=== PATIENT | male | born 1965 | race Caucasian/White ===

== ENCOUNTER 2018-09-30 08:46 | Inpatient (IN) | payer BC ==
--- NOTE | 2018-09-30 09:08 | EDM.PDOC ---
ED HPI GENERAL MEDICAL PROBLEM - General Stated Complaint: SICK Time Seen by Provider: 09/30/18 09:00 Source of Information: Reports: Patient History Limitations: Reports: No Limitations - History of Present Illness INITIAL COMMENTS - FREE TEXT/NARRATIVE: This 53 yo male patient reports to the ED with a 1 week history of cough, increased shortness of breath, fever and generalized weakness. The patient reports up to about 1 week ago, he was having cold like symptoms with clear sputum, but now he has been having yellowish expectorated sputum. The patient reports he has previously had pneumonia. The patient reports he continues to smoke cigarettes. The patient reports his fever was up to 103, but today it has been 99 with Tylenol and ibuprofen. The patient denies any chest pain at this time, but continues to have shortness of breath. Onset: Gradual Duration: Week(s):, Constant, Getting Worse Location: Reports: Chest Quality: Reports: Ache, Dull Severity: Moderate Improves with: Reports: Medication (Tylenol and ibuprofen) Worsens with: Reports: Other (activity) Context: Reports: Other Associated Symptoms: Reports: cough w sputum, Fever/Chills, Shortness of Breath , Weakness Treatments HAT BLOCK BENCH HAND: Reports: Acetaminophen, NSAIDS - Related Data Allergies Allergy/AdvReac Type Severity Reaction Status Date / Time Penicillins Allergy Cannot Verified 09/30/18 08:53 Remember Home Meds: Home Meds . [No Known Home Meds] 09/30/18 [History] ED ROS GENERAL - Review of Systems Review Of Systems: ROS reveals no pertinent complaints other than HPI. ED EXAM, GENERAL - Physical Exam Exam: See Below Exam Limited By: No Limitations General Appearance: Alert, WD/WN, Moderate Distress, Obese Eye Exam: Bilateral Eye: EOMI, Normal Inspection, PERRL Ears: Normal External Exam, Normal Canal, Hearing Grossly Normal, Normal TMs Nose: Normal Inspection, Normal Mucosa, No Blood Throat/Mouth: Normal Inspection, Normal Lips, Normal Teeth, Normal Gums, Normal Oropharynx, Normal Voice, No Airway Compromise Head: Atraumatic, Normocephalic Neck: Normal Inspection, Supple, Non-Tender, Full Range of Motion Respiratory/Chest: Decreased Breath Sounds, Rhonchi (throughout) Cardiovascular: Normal Peripheral Pulses, Regular Rate, Rhythm, No Edema, No Gallop, No JVD, No Murmur, No Rub GI/Abdominal: Normal Bowel Sounds, Soft, Non-Tender, No Organomegaly, No Distention, No Abnormal Bruit, No Mass (Male) Exam: Deferred Rectal (Males) Exam: Deferred Back Exam: Normal Inspection, Full Range of Motion, NT Extremities: Normal Inspection, Normal Range of Motion, Non-Tender, Normal Capillary Refill, No Pedal Edema Neurological: Alert, Oriented, CN II-XII Intact, Normal Cognition, Normal Gait, Normal Reflexes, No Motor/Sensory Deficits Psychiatric: Normal Affect, Normal Mood Skin Exam: Warm, Dry, Intact, Normal Color, No Rash Lymphatic: No Adenopathy Course - Vital Signs Last Recorded V/S: Last Vital Signs Temp 36.1 C 09/30/18 09:02 Pulse 110 H 09/30/18 09:02 Resp 28 H 09/30/18 09:02 BP 189/117 H 09/30/18 09:02 Pulse Ox 93 L 09/30/18 09:37 - Orders/Labs/Meds Orders: Active Orders 24 hr Category Date Time Status EKG Documentation Completion [RC] URGENT Care 09/30/18 08:52 Active RT Aerosol Therapy [RC] ASDIRECTED Care 09/30/18 09:37 Active Chest 2V [CR] Urgent Exams 09/30/18 08:52 Taken ABG [BLOOD GAS ARTERIAL] [BG] Stat Lab 09/30/18 10:26 Ordered CBC WITH AUTO DIFF [HEME] Urgent Lab 09/30/18 09:11 Results CULTURE BLOOD [BC] Stat Lab 09/30/18 09:11 Received CULTURE BLOOD [BC] Stat Lab 09/30/18 10:07 Received CULTURE SPUTUM + SMEAR [RM] Stat Lab 09/30/18 09:02 Received MANUAL DIFFERENTIAL QA/NC [HEME] Urgent Lab 09/30/18 09:11 Results Meropenem [Merrem] 1 gm Med 09/30/18 10:25 Ordered Sodium Chloride 0.9% [Normal Saline] 100 ml IV ONETIME Vancomycin 2 gm Med 09/30/18 10:15 Active Sodium Chloride 0.9% [Normal Saline] 500 ml IV ONETIME Medication Orders Vancomycin HCl 2 gm/ Sodium (Chloride) 500 mls @ 250 mls/hr IV ONETIME ONE Stop: 09/30/18 12:14 Meropenem 1 gm/ Sodium (Chloride) 100 mls @ 200 mls/hr IV ONETIME ONE Stop: 09/30/18 10:54 Labs: Laboratory Tests 09/30/18 09/30/18 09/30/18 Range/Units 09:11 09:11 09:11 WBC 19.0 H (5.0-10.0) 10^3/uL RBC 5.18 (4.6-6.2) 10^6/uL Hgb 16.2 (14.0-18.0) g/dL Hct 50.7 (40.0-54.0) % MCV 97.9 (80-100) fL MCH 31.3 (27.0-34.0) pg MCHC 32.0 L (33.0-35.0) g/dL Plt Count 214 (150-450) 10^3/uL Neut % (Auto) 73.7 (42.2-75.2) % Lymph % (Auto) 9.0 L (20.5-50.1) % [place] % (Auto) 17.1 H (2-8) % Eos % (Auto) 0.1 L (1.0-3.0) % Baso % (Auto) 0.1 (0.0-1.0) % Add Manual Diff Yes Sodium 136 (135-145) mmol/L Potassium 3.9 (3.6-5.0) mmol/L Chloride 98 L (101-111) mmol/L Carbon Dioxide 26.0 (21.0-31.0) mmol/L Anion Gap 15.9 BUN 12 (7-18) mg/dL Creatinine 0.7 (0.6-1.3) mg/dL Est Cr Clr Drug Dosing 123.12 mL/min Estimated GFR (MDRD) > 60 BUN/Creatinine Ratio 17.14 Glucose 126 H (74-105) mg/dL Lactic Acid 1.2 (0.5-2.2) mmol/L Calcium 8.5 (8.4-10.2) mg/dl Total Bilirubin 0.7 (0.2-1.0) mg/dL AST 30 (10-42) IU/L ALT 34 (10-60) IU/L Alkaline Phosphatase 73 (42-121) IU/L Troponin I < 0.02 (0.00-0.02) ng/ml Total Protein 7.7 (6.7-8.2) g/dl Albumin 3.5 (3.2-5.5) g/dl Globulin 4.2 Albumin/Globulin Ratio 0.83 Meds: Medications Generic Name Dose Route Start Last Admin Trade Name Freq PRN Reason Stop Dose Admin Vancomycin HCl 2 gm/ Sodium 500 mls @ 250 mls/hr 09/30/18 10:15 Chloride IV 09/30/18 12:14 ONETIME ONE Meropenem 1 gm/ Sodium 100 mls @ 200 mls/hr 09/30/18 10:25 Chloride IV 09/30/18 10:54 ONETIME ONE Discontinued Medications Generic Name Dose Route Start Last Admin Trade Name Freq PRN Reason Stop Dose Admin Albuterol/Ipratropium 3 ml 09/30/18 09:37 09/30/18 09:43 Duoneb 3.0-0.5 Mg/3 Ml NEB 09/30/18 09:38 3 ml ONETIME ONE Administration Departure - Departure Time of Disposition: 10:26 Disposition: Admitted As Inpatient 64 Condition: Serious Clinical Impression: Pneumonia Qualifiers: Pneumonia type: due to unspecified organism Laterality: unspecified laterality Lung location: unspecified part of lung Qualified Code(s): J18.9 - Pneumonia, unspecified organism - Discharge Information *PRESCRIPTION DRUG MONITORING PROGRAM REVIEWED*: Not Applicable *COPY OF PRESCRIPTION DRUG MONITORING REPORT IN PATIENT RUBIN: Not Applicable Care Plan Goals: Discussed the patient's history, examination, lab, treatments and x-ray results with Dr. Barnett. Dr. Barnett accepted the patient for continued evaluation and management as an inpatient at [facility] in [place]. - My Orders Last 24 Hours: My Active Orders 09/30/18 08:52 EKG Documentation Completion [RC] URGENT Chest 2V [CR] Urgent 09/30/18 09:02 CULTURE SPUTUM + SMEAR [RM] Stat 09/30/18 09:11 CBC WITH AUTO DIFF [HEME] Urgent CULTURE BLOOD [BC] Stat MANUAL DIFFERENTIAL QA/NC [HEME] Urgent 09/30/18 09:37 RT Aerosol Therapy [RC] ASDIRECTED 09/30/18 10:07 CULTURE BLOOD [BC] Stat 09/30/18 10:15 Vancomycin 2 gm Sodium Chloride 0.9% [Normal Saline] 500 ml IV ONETIME 09/30/18 10:25 Meropenem [Merrem] 1 gm Sodium Chloride 0.9% [Normal Saline] 100 ml IV ONETIME 09/30/18 10:26 ABG [BLOOD GAS ARTERIAL] [BG] Stat - Assessment/Plan Last 24 Hours: My Active Orders 09/30/18 08:52 EKG Documentation Completion [RC] URGENT Chest 2V [CR] Urgent 09/30/18 09:02 CULTURE SPUTUM + SMEAR [RM] Stat 09/30/18 09:11 CBC WITH AUTO DIFF [HEME] Urgent CULTURE BLOOD [BC] Stat MANUAL DIFFERENTIAL QA/NC [HEME] Urgent 09/30/18 09:37 RT Aerosol Therapy [RC] ASDIRECTED 09/30/18 10:07 CULTURE BLOOD [BC] Stat 09/30/18 10:15 Vancomycin 2 gm Sodium Chloride 0.9% [Normal Saline] 500 ml IV ONETIME 09/30/18 10:25 Meropenem [Merrem] 1 gm Sodium Chloride 0.9% [Normal Saline] 100 ml IV ONETIME 09/30/18 10:26 ABG [BLOOD GAS ARTERIAL] [BG] Stat
[2018-09-30] MEDS ORDERED: Albuterol/Ipratropium 3.0-0.5 MG/3 ML Neb Soln NEB ONE (09:37)
[2018-09-30 09:51] LABS: ANION GAP 15.9; CHLORIDE,CL 98 mmol/L (101-111); SODIUM,NA 136 mmol/L (135-145)
[2018-09-30] MEDS ORDERED: Vancomycin 2 GM in Sodium Chloride 0.9% 500 ML IV ONE (10:15)
[2018-09-30] MEDS ORDERED: Meropenem 1 GM in Sodium Chloride 0.9% 100 ML IV ONE (10:25)
[2018-09-30 10:34] LABS: BASE EXCESS ARTERIAL 3 mmol/L ((-2)-(+3)); BICARBONATE,ARTERIAL 31.1 mmol/L (22-26); O2 DELIVERY DEVICE SIMPLE MASK; O2 SATURATION ARTERIAL 92 % (95-100); PCO2 ARTERIAL 65 mmHg (35-45); PO2 ARTERIAL 71 mmHg (70-100)
[2018-09-30 10:35] LABS: ALLEN TEST PERFORMED
--- NOTE | 2018-09-30 10:58 | CR ---
Clinical history: 53-year-old male shortness breath. Interpretation: 1. Accentuation bronchovascular markings with some cephalization of flow and peribronchial "cuffing" but... normal cardiac silhouette and no alveolar edema or dependent pleural fluid accumulation. Bronchial inflammation? 2. Mild air trapping but no lung mass or focal lobar pneumonia. 3. No atelectasis/collapse. 4. No pneumothorax. Conclusion: Prominence of bronchovascular markings (see above). No alveolar edema or lobar pneumonia.
--- NOTE | 2018-09-30 13:25 | PCM.HP ---
H&P History of Present Illness - General Date of Service: 09/30/18 Admit Problem/Dx: Admission Diagnosis/Problem Admission Diagnosis/Problem Pneumonia Source of Information: Patient History Limitations: Reports: No Limitations - History of Present Illness Initial Comments - Free Text/Narative: 53 yo M with PMH of cigarette smoking, COPD who presents with SOB, fever, cough with yellowish/green sputum. Patient has had a chronic cough for years. He noticed that cough worsened in the past week. He also notices worsening SOB with exertion. Cough is productive of yellowish greenish sputum He noticed a fever in the last two days. Associated chills and rigor. Also has associated fatigue He tried OTC ibuprofen and tylenol without relief and hence came to the ED. ROS: no chest pain, no abd pain, no dysuria In the ED, he was found to be hypoxic, hypercapnic (ABG 7.3/65/71) and lab work showed leucocytosis with left shift 23% bands He was started on IV abx and admitted to the [facility]. - Related Data Allergies/Adverse Reactions: Allergies Allergy/AdvReac Type Severity Reaction Status Date / Time Penicillins Allergy Cannot Verified 09/30/18 11:31 Remember Home Medications: Home Meds . [No Known Home Meds] 09/30/18 [History] Past Medical History HEENT History: Reports: Other (See Below) Other HEENT History: cyst in left eye Psychiatric History: Reports: Addiction Endocrine/Metabolic History: Reports: Obesity/BMI 30+ Dermatologic History: Reports: Cellulitis Other Dermatologic History: Hospitalized with it - Infectious Disease History Infectious Disease History: Reports: Chicken Pox, Mumps Social & Family History - Family History Family Medical History: Noncontributory - Tobacco Use Smoking Status *Q: Current Every Day Smoker Years of Tobacco use: 40 Packs/Tins Daily: 1 Used Tobacco, but Quit: No Second Hand Smoke Exposure: Yes - Caffeine Use Caffeine Use: Reports: Coffee - Alcohol Use Days Per Week of Alcohol Use: 2 Number of Drinks Per Day: 7 Total Drinks Per Week: 14 - Recreational Drug Use Recreational Drug Use: Yes Drug Use in Last 12 Months: Yes Recreational Drug Type: Reports: Marijuana/Hashish Recreational Drug Use Frequency: Socially H&P Review of Systems - Review of Systems: Review Of Systems: See Below General: Reports: Fever HEENT: Reports: No Symptoms Pulmonary: Reports: Shortness of Breath, Cough, Sputum Cardiovascular: Reports: No Symptoms Gastrointestinal: Reports: No Symptoms Genitourinary: Reports: No Symptoms Musculoskeletal: Reports: No Symptoms Exam - Exam Exam: See Below - Vital Signs Vital Signs: Last Vital Signs Temp 37.7 C 09/30/18 11:21 Pulse 91 09/30/18 11:21 Resp 22 H 09/30/18 11:21 BP 137/111 H 09/30/18 11:21 Pulse Ox 90 L 09/30/18 11:21 Weight: 124.375 kg - Exam General: Alert, Oriented HEENT: Conjunctiva Clear Neck: Supple Lungs: Crackles (bilaterally) Cardiovascular: Regular Rate, Regular Rhythm GI/Abdominal Exam: Normal Bowel Sounds, Soft, Non-Tender Extremities: Normal Inspection, Normal Range of Motion - Patient Data Lab Results Last 24 hrs: Laboratory Results - last 24 hr 09/30/18 09/30/18 09/30/18 Range/Units 09:11 09:11 09:11 WBC 19.0 H (5.0-10.0) 10^3/uL RBC 5.18 (4.6-6.2) 10^6/uL Hgb 16.2 (14.0-18.0) g/dL Hct 50.7 (40.0-54.0) % MCV 97.9 (80-100) fL MCH 31.3 (27.0-34.0) pg MCHC 32.0 L (33.0-35.0) g/dL Plt Count 214 (150-450) 10^3/uL Neut % (Auto) 73.7 (42.2-75.2) % Lymph % (Auto) 9.0 L (20.5-50.1) % [place] % (Auto) 17.1 H (2-8) % Eos % (Auto) 0.1 L (1.0-3.0) % Baso % (Auto) 0.1 (0.0-1.0) % Add Manual Diff Yes Neutrophils % (Manual) 56 (42-75) % Band Neutrophils % 23 % Lymphocytes % (Manual) 8 L (20-50) % Monocytes % (Manual) 13 H (2-8) % ABG pH (7.35-7.45) ABG pCO2 (35-45) mmHg ABG pO2 (70-100) mmHg ABG HCO3 (22-26) mmol/L ABG O2 Saturation (95-100) % ABG Base Excess ((-2)-(+3)) mmol/L Sharath Test O2 Delivery Device Sodium 136 (135-145) mmol/L Potassium 3.9 (3.6-5.0) mmol/L Chloride 98 L (101-111) mmol/L Carbon Dioxide 26.0 (21.0-31.0) mmol/L Anion Gap 15.9 BUN 12 (7-18) mg/dL Creatinine 0.7 (0.6-1.3) mg/dL Est Cr Clr Drug Dosing 123.12 mL/min Estimated GFR (MDRD) > 60 BUN/Creatinine Ratio 17.14 Glucose 126 H (74-105) mg/dL Lactic Acid 1.2 (0.5-2.2) mmol/L Calcium 8.5 (8.4-10.2) mg/dl Total Bilirubin 0.7 (0.2-1.0) mg/dL AST 30 (10-42) IU/L ALT 34 (10-60) IU/L Alkaline Phosphatase 73 (42-121) IU/L Troponin I < 0.02 (0.00-0.02) ng/ml Total Protein 7.7 (6.7-8.2) g/dl Albumin 3.5 (3.2-5.5) g/dl Globulin 4.2 Albumin/Globulin Ratio 0.83 03/18/19 Range/Units 10:30 WBC (5.0-10.0) 10^3/uL RBC (4.6-6.2) 10^6/uL Hgb (14.0-18.0) g/dL Hct (40.0-54.0) % MCV (80-100) fL MCH (27.0-34.0) pg MCHC (33.0-35.0) g/dL Plt Count (150-450) 10^3/uL Neut % (Auto) (42.2-75.2) % Lymph % (Auto) (20.5-50.1) % [place] % (Auto) (2-8) % Eos % (Auto) (1.0-3.0) % Baso % (Auto) (0.0-1.0) % Add Manual Diff Neutrophils % (Manual) (42-75) % Band Neutrophils % % Lymphocytes % (Manual) (20-50) % Monocytes % (Manual) (2-8) % ABG pH 7.30 L (7.35-7.45) ABG pCO2 65 H (35-45) mmHg ABG pO2 71 (70-100) mmHg ABG HCO3 31.1 H (22-26) mmol/L ABG O2 Saturation 92 L (95-100) % ABG Base Excess 3 ((-2)-(+3)) mmol/L Sharath Test Performed O2 Delivery Device Simple mask Sodium (135-145) mmol/L Potassium (3.6-5.0) mmol/L Chloride (101-111) mmol/L Carbon Dioxide (21.0-31.0) mmol/L Anion Gap BUN (7-18) mg/dL Creatinine (0.6-1.3) mg/dL Est Cr Clr Drug Dosing mL/min Estimated GFR (MDRD) BUN/Creatinine Ratio Glucose (74-105) mg/dL Lactic Acid (0.5-2.2) mmol/L Calcium (8.4-10.2) mg/dl Total Bilirubin (0.2-1.0) mg/dL AST (10-42) IU/L ALT (10-60) IU/L Alkaline Phosphatase (42-121) IU/L Troponin I (0.00-0.02) ng/ml Total Protein (6.7-8.2) g/dl Albumin (3.2-5.5) g/dl Globulin Albumin/Globulin Ratio Result Diagrams: 09/30/18 09:11 09/30/18 09:11 Jn Results Last 24 hrs: Microbiology 09/30/18 09:02 Gram Stain - Final Sputum - Expectorated 09/30/18 09:17 Influenza Type A Antigen Screen - Final Nasal, Unspecified NEGATIVE INFLUENZA A VIRUS AG Influenza Type B Antigen Screen - Final NEGATIVE INFLUENZA B VIRUS AG Problem List Initiated/Reviewed/Updated: Yes Orders Last 24hrs: Active Orders 24 hr Category Date Time Status Patient Status [ADT] Routine ADT 09/30/18 12:46 Active Ambulate [RC] ASDIRECTED Care 09/30/18 12:46 Active EKG Documentation Completion [RC] URGENT Care 09/30/18 08:52 Active Height and Weight [RC] DAILY Care 09/30/18 12:46 Active Oxygen Therapy [RC] PRN Care 09/30/18 12:46 Active Peripheral IV Care [RC] . DIRECTED Care 09/30/18 12:46 Active RT Aerosol Therapy [RC] ASDIRECTED Care 09/30/18 09:37 Active RT Aerosol Therapy [RC] ASDIRECTED Care 09/30/18 13:03 Active RT Post Treatment Assessment [RC] Click to Edit Care 09/30/18 13:03 Active RT Pre-Treatment Assessment [RC] Click to Edit Care 09/30/18 13:03 Active Up With Assistance [RC] ASDIRECTED Care 09/30/18 12:46 Active VTE/DVT Education [RC] PER UNIT ROUTINE Care 09/30/18 12:46 Active Vital Signs [RC] Q4H Care 09/30/18 12:46 Active Regular Diet [DIET] Diet 09/30/18 Breakfast Active BASIC METABOLIC PANEL,BMP [CHEM] AM Lab 10/01/18 05:11 Ordered BASIC METABOLIC PANEL,BMP [CHEM] AM Lab 10/02/18 05:11 Ordered BLOOD GAS ARTERIAL [BG] AM Lab 10/01/18 05:11 Ordered CBC WITH AUTO DIFF [HEME] AM Lab 10/01/18 05:11 Ordered CBC WITH AUTO DIFF [HEME] AM Lab 10/02/18 05:11 Ordered CULTURE BLOOD [BC] Stat Lab 09/30/18 09:11 Received CULTURE BLOOD [BC] Stat Lab 09/30/18 10:07 Received CULTURE SPUTUM + SMEAR [RM] Stat Lab 09/30/18 09:02 Results Albuterol/Ipratropium [DuoNeb 3.0-0.5 MG/3 ML] Med 09/30/18 13:01 Ordered 3 ml NEB Q4HRRT PRN Albuterol/Ipratropium [DuoNeb 3.0-0.5 MG/3 ML] Med 09/30/18 15:00 Ordered 3 ml NEB Q8HRRT Meropenem [Merrem] 1 gm Med 09/30/18 14:00 Ordered Sodium Chloride 0.9% [Normal Saline] 100 ml IV Q8HR Mometasone/Formoterol [Dulera 200-5 MCG] Med 09/30/18 18:00 Ordered 2 puff IH BIDRT Pharmacy to Dose - Vancomycin Med 09/30/18 13:00 Ordered 1 dose .XX ASDIRECTED Sodium Chloride 0.9% [Normal Saline] 1,000 ml Med 09/30/18 13:00 Ordered IV ASDIRECTED Sodium Chloride 0.9% [Saline Flush] Med 09/30/18 12:46 Active 10 ml FLUSH ASDIRECTED PRN Tiotropium [Spiriva HandiHaler] Med 09/30/18 13:15 Ordered 18 mcg INH DAILY Peripheral IV Insertion Adult [OM.PC] Routine Oth 09/30/18 12:46 Ordered Saline Lock Insert [OM.PC] Routine Oth 09/30/18 12:46 Ordered Code Status [Resuscitation Status] Routine Resus Stat 09/30/18 12:58 Ordered Medication Orders Albuterol/Ipratropium (Duoneb 3.0-0.5 Mg/3 Ml) 3 ml NEB Q4HRRT PRN PRN Reason: Shortness of Breath Albuterol/Ipratropium (Duoneb 3.0-0.5 Mg/3 Ml) 3 ml NEB Q8HRRT GAURI Meropenem 1 gm/ Sodium (Chloride) 100 mls @ 200 mls/hr IV Q8HR GA[facility] Sodium Chloride (Normal Saline) 1,000 mls @ 100 mls/hr IV ASDIRECTED GAURI Mometasone Furoate/Formoterol Fumar (Dulera 200-5 Mcg) 2 puff IH BIDRT GAURI Sodium Chloride (Saline Flush) 10 ml FLUSH ASDIRECTED PRN PRN Reason: Keep Vein Open Tiotropium Sobieski (Spiriva Handihaler) 18 mcg INH DAILY GAURI Vancomycin HCl (Pharmacy To Dose - Vancomycin) 1 dose .XX ASDIRECTED GAURI Assessment/Plan Comment:: #COPD exacerbation -BIPAP prn -Hold steroids for pneumonia -nebs dulera, spiriva -duonebs PRN and ATC -daily peak flow measurement -flutter valve -incentive spirometry #Community acquired pneumonia Hx of PCN allergy IV levaquin Trend CBC daily Follow up on bld cx, sputum cx #Smoking hx counselled patient on smoking cessation and he is willing to quit #DVT ppx SC lovenox #Code status FC
[2018-09-30] MEDS: Albuterol/Ipratropium 3.0-0.5 MG/3 ML Neb Soln NEB PRN ×2 (13:29→20:07)
[2018-09-30] MEDS: Sodium Chloride 0.9% 1,000 ML IV SCH ×2 (13:42→23:44)
[2018-09-30] MEDS ORDERED: Meropenem Premix 1 GM in Premix Bag 1 BAG IV SCH (14:00)
[2018-09-30] MEDS: Acetaminophen 325 MG Tab PO PRN ×2 (14:11→20:07)
[2018-09-30] MEDS: Tiotropium Inhaler 18 MCG Inhalation Powder Cap Kit of 5 INH SCH (14:11)
[2018-09-30] MEDS: Levofloxacin/Dextrose 5%-Water 500 MG in Premix Bag 1 BAG IV SCH (14:12)
[2018-09-30] MEDS: Nicotine 21 MG/24 Hr Patch TRDERM SCH (14:14)
[2018-09-30] MEDS: Enoxaparin 40 MG/0.4 ML Syringe SUBCUT SCH (14:15)
[2018-09-30] MEDS ORDERED: Vancomycin 1.5 GM in Sodium Chloride 0.9% 500 ML IV SCH (15:00)
[2018-09-30 15:08] LABS: BASE EXCESS ARTERIAL 3 mmol/L ((-2)-(+3)); BICARBONATE,ARTERIAL 30.3 mmol/L (22-26); O2 DELIVERY DEVICE VENT MASK; O2 SATURATION ARTERIAL 90 % (95-100); PCO2 ARTERIAL 61 mmHg (35-45); PO2 ARTERIAL 66 mmHg (70-100)
[2018-09-30 15:10] LABS: ALLEN TEST PERFORMED
[2018-09-30] MEDS: Albuterol/Ipratropium 3.0-0.5 MG/3 ML Neb Soln NEB SCH ×2 (16:01→23:37)
[2018-09-30] MEDS: Formoterol/Mometasone 200-5 MCG 8.8 GM Inhaler IH SCH (18:12)
[2018-10-01] MEDS: Acetaminophen 325 MG Tab PO PRN ×2 (03:02→14:45)
[2018-10-01 07:07] LABS: ANION GAP 12.6; CHLORIDE,CL 98 mmol/L (101-111); SODIUM,NA 137 mmol/L (135-145)
[2018-10-01] MEDS: Albuterol/Ipratropium 3.0-0.5 MG/3 ML Neb Soln NEB SCH ×2 (07:28→15:16)
[2018-10-01 07:49] LABS: BASE EXCESS ARTERIAL 3 mmol/L ((-2)-(+3)); BICARBONATE,ARTERIAL 33.3 mmol/L (22-26); O2 DELIVERY DEVICE SIMPLE MASK; O2 SATURATION ARTERIAL 93 % (95-100); PO2 ARTERIAL 72 mmHg (70-100)
[2018-10-01 07:52] LABS: PCO2 ARTERIAL 80 mmHg (35-45)
[2018-10-01] MEDS: Tiotropium Inhaler 18 MCG Inhalation Powder Cap Kit of 5 INH SCH ×2 (09:09→18:16)
[2018-10-01] MEDS: Formoterol/Mometasone 200-5 MCG 8.8 GM Inhaler IH SCH ×2 (09:09→18:16)
--- NOTE | 2018-10-01 11:24 | PCM.PN ---
- General Info Date of Service: 10/01/18 Admission Dx/Problem (Free Text): Admission Diagnosis/Problem Admission Diagnosis/Problem Pneumonia Subjective Update: I saw and examined the patient at the bedside Overnight, he did not have BiPAP as ordered. Morning ABG shows significant hypercapnia BiPAP restarted. Patient feels better today. He tells me that overnight was the first time he was able to sleep in two days. Still has productive cough, but sputum is improved. Febrile episode has also improved overnight. ROS: no chest pain, no lightheadedness, no urinary symptoms. Functional Status: Reports: Tolerating Diet, Ambulating - Review of Systems General: Denies: Fever HEENT: Reports: No Symptoms Pulmonary: Reports: Shortness of Breath, Cough, Sputum Cardiovascular: Reports: No Symptoms Gastrointestinal: Reports: No Symptoms Genitourinary: Reports: No Symptoms Musculoskeletal: Reports: No Symptoms Skin: Reports: No Symptoms - Patient Data Vitals - Most Recent: Last Vital Signs Temp 36.6 C 10/01/18 08:12 Pulse 87 10/01/18 08:12 Resp 20 10/01/18 08:12 BP 148/79 H 10/01/18 08:12 Pulse Ox 93 L 10/01/18 08:12 Weight - Most Recent: 125.191 kg I&O - Last 24 Hours: Intake & Output 09/30/18 10/01/18 10/01/18 22:59 06:59 14:59 Intake Total 300 985 Output Total 400 300 Balance -100 985 -300 Lab Results Last 24 Hours: Laboratory Results - last 24 hr 09/30/18 10/01/18 10/01/18 Range/Units 15:02 06:25 06:25 WBC 18.3 H (5.0-10.0) 10^3/uL RBC 4.44 L (4.6-6.2) 10^6/uL Hgb 13.8 L D (14.0-18.0) g/dL Hct 44.7 (40.0-54.0) % MCV 100.7 H (80-100) fL MCH 31.1 (27.0-34.0) pg MCHC 30.9 L (33.0-35.0) g/dL Plt Count 203 (150-450) 10^3/uL Neut % (Auto) 74.4 (42.2-75.2) % Lymph % (Auto) 10.9 L (20.5-50.1) % [facility] % (Auto) 14.5 H (2-8) % Eos % (Auto) 0.1 L (1.0-3.0) % Baso % (Auto) 0.1 (0.0-1.0) % Add Manual Diff Yes Neutrophils % (Manual) 54 (42-75) % Band Neutrophils % 25 % Lymphocytes % (Manual) 14 L (20-50) % Monocytes % (Manual) 7 (2-8) % Atypical Lymphocytes Few Vacuolated Monocytes 1+ slight Toxic Granulation 1+ slight Platelet Estimate Adequate Macrocytosis 1+ slight ABG pH 7.32 L (7.35-7.45) ABG pCO2 61 H (35-45) mmHg ABG pO2 66 L (70-100) mmHg ABG HCO3 30.3 H (22-26) mmol/L ABG O2 Saturation 90 L (95-100) % ABG Base Excess 3 ((-2)-(+3)) mmol/L Sharath Test Performed O2 Delivery Device Vent mask Sodium 137 (135-145) mmol/L Potassium 4.6 (3.6-5.0) mmol/L Chloride 98 L (101-111) mmol/L Carbon Dioxide 31.0 (21.0-31.0) mmol/L Anion Gap 12.6 BUN 12 (7-18) mg/dL Creatinine 0.6 (0.6-1.3) mg/dL Est Cr Clr Drug Dosing 148.16 mL/min Estimated GFR (MDRD) > 60 Glucose 108 H (74-105) mg/dL Calcium 8.2 L (8.4-10.2) mg/dl 10/01/18 Range/Units 07:45 WBC (5.0-10.0) 10^3/uL RBC (4.6-6.2) 10^6/uL Hgb (14.0-18.0) g/dL Hct (40.0-54.0) % MCV (80-100) fL MCH (27.0-34.0) pg MCHC (33.0-35.0) g/dL Plt Count (150-450) 10^3/uL Neut % (Auto) (42.2-75.2) % Lymph % (Auto) (20.5-50.1) % [facility] % (Auto) (2-8) % Eos % (Auto) (1.0-3.0) % Baso % (Auto) (0.0-1.0) % Add Manual Diff Neutrophils % (Manual) (42-75) % Band Neutrophils % % Lymphocytes % (Manual) (20-50) % Monocytes % (Manual) (2-8) % Atypical Lymphocytes Vacuolated Monocytes Toxic Granulation Platelet Estimate Macrocytosis ABG pH 7.24 L (7.35-7.45) ABG pCO2 80 H* (35-45) mmHg ABG pO2 72 (70-100) mmHg ABG HCO3 33.3 H (22-26) mmol/L ABG O2 Saturation 93 L (95-100) % ABG Base Excess 3 ((-2)-(+3)) mmol/L Sharath Test ok O2 Delivery Device Simple mask Sodium (135-145) mmol/L Potassium (3.6-5.0) mmol/L Chloride (101-111) mmol/L Carbon Dioxide (21.0-31.0) mmol/L Anion Gap BUN (7-18) mg/dL Creatinine (0.6-1.3) mg/dL Est Cr Clr Drug Dosing mL/min Estimated GFR (MDRD) Glucose (74-105) mg/dL Calcium (8.4-10.2) mg/dl Jn Results Last 24 Hours: Microbiology 09/30/18 10:07 Aerobic Blood Culture - Preliminary Blood NO GROWTH AFTER 1 DAY Anaerobic Blood Culture - Preliminary NO GROWTH AFTER 1 DAY 09/30/18 09:11 Aerobic Blood Culture - Preliminary Blood NO GROWTH AFTER 1 DAY Anaerobic Blood Culture - Preliminary NO GROWTH AFTER 1 DAY 09/30/18 09:02 Gram Stain - Final Sputum - Expectorated 09/30/18 09:17 Influenza Type A Antigen Screen - Final Nasal, Unspecified NEGATIVE INFLUENZA A VIRUS AG Influenza Type B Antigen Screen - Final NEGATIVE INFLUENZA B VIRUS AG Med Orders - Current: Current Medications Acetaminophen (Tylenol) 650 mg PO Q6H PRN PRN Reason: Fever Last Admin: 10/01/18 03:02 Dose: 650 mg Albuterol/Ipratropium (Duoneb 3.0-0.5 Mg/3 Ml) 3 ml NEB Q4HRRT PRN PRN Reason: Shortness of Breath Last Admin: 09/30/18 20:07 Dose: 3 ml Albuterol/Ipratropium (Duoneb 3.0-0.5 Mg/3 Ml) 3 ml NEB Q8HRRT [facility] Last Admin: 10/01/18 07:28 Dose: 3 ml Enoxaparin Sodium (Lovenox) 40 mg SUBCUT DAILY [facility] Last Admin: 09/30/18 14:15 Dose: 40 mg Sodium Chloride (Normal Saline) 1,000 mls @ 100 mls/hr IV ASDIRECTED [facility] Last Admin: 09/30/18 23:44 Dose: 100 mls/hr Levofloxacin/Dextrose 500 mg/ (Premix) 100 mls @ 100 mls/hr IV Q24H [facility] Last Admin: 09/30/18 14:12 Dose: 100 mls/hr Mometasone Furoate/Formoterol Fumar (Dulera 200-5 Mcg) 2 puff IH BIDRT [facility] Last Admin: 10/01/18 09:09 Dose: Not Given Nicotine (Habitrol) 21 mg TRDERM DAILY [facility] Last Admin: 09/30/18 14:14 Dose: 21 mg Sodium Chloride (Saline Flush) 10 ml FLUSH ASDIRECTED PRN PRN Reason: Keep Vein Open Tiotropium [place] (Spiriva Handihaler) 18 mcg INH DAILY [facility] Last Admin: 10/01/18 09:09 Dose: Not Given Discontinued Medications Albuterol/Ipratropium (Duoneb 3.0-0.5 Mg/3 Ml) 3 ml NEB ONETIME ONE Stop: 09/30/18 09:38 Last Admin: 09/30/18 09:43 Dose: 3 ml Vancomycin HCl 2 gm/ Sodium (Chloride) 500 mls @ 250 mls/hr IV ONETIME ONE Stop: 09/30/18 12:14 Last Admin: 09/30/18 10:42 Dose: 250 mls/hr Meropenem 1 gm/ Sodium (Chloride) 100 mls @ 200 mls/hr IV ONETIME ONE Stop: 09/30/18 10:54 Last Admin: 09/30/18 10:42 Dose: 200 mls/hr Meropenem/Sodium Chloride 1 gm (/ Premix) 50 mls @ 100 mls/hr IV Q8HR [facility] Vancomycin HCl 1.5 gm/ Sodium (Chloride) 500 mls @ 333.333 mls/hr IV Q12H [facility] Vancomycin HCl (Pharmacy To Dose - Vancomycin) 1 dose .XX ASDIRECTED [facility] - Exam General: Alert, Oriented, Severe Distress Neck: Supple Lungs: Other (poor air entry bilaterally, on BiPAP) Cardiovascular: Regular Rate, Regular Rhythm GI/Abdominal Exam: Normal Bowel Sounds, Soft, Non-Tender Extremities: Normal Inspection, Normal Range of Motion, Non-Tender, No Pedal Edema - Problem List Review Problem List Initiated/Reviewed/Updated: Yes - My Orders Last 24 Hours: My Active Orders 09/30/18 12:46 Patient Status [ADT] Routine Ambulate [RC] ASDIRECTED Height and Weight [RC] 0600 Oxygen Therapy [RC] PRN Peripheral IV Care [RC] 09,21 Up With Assistance [RC] ASDIRECTED VTE/DVT Education [RC] PER UNIT ROUTINE Vital Signs [RC] 00,04,08,12,16,20 Sodium Chloride 0.9% [Saline Flush] 10 ml FLUSH ASDIRECTED PRN Peripheral IV Insertion Adult [OM.PC] Routine Saline Lock Insert [OM.PC] Routine 09/30/18 12:58 Code Status [Resuscitation Status] Routine 09/30/18 13:00 Sodium Chloride 0.9% [Normal Saline] 1,000 ml IV ASDIRECTED 09/30/18 13:01 Albuterol/Ipratropium [DuoNeb 3.0-0.5 MG/3 ML] 3 ml NEB Q4HRRT PRN 09/30/18 13:03 RT Aerosol Therapy [RC] ASDIRECTED RT Post Treatment Assessment [RC] Click to Edit RT Pre-Treatment Assessment [RC] Click to Edit 09/30/18 13:15 Tiotropium [Spiriva HandiHaler] 18 mcg INH DAILY 09/30/18 13:34 Acetaminophen [Tylenol] 650 mg PO Q6H PRN 09/30/18 13:45 Enoxaparin [Lovenox] 40 mg SUBCUT DAILY Nicotine [Habitrol] 21 mg TRDERM DAILY 09/30/18 14:00 Levofloxacin/Dextrose 5%-Water [Levaquin in D5W 500 MG/100 ML] 500 mg Premix Bag 1 bag IV Q24H 09/30/18 15:00 Albuterol/Ipratropium [DuoNeb 3.0-0.5 MG/3 ML] 3 ml NEB Q8HRRT 09/30/18 18:00 Mometasone/Formoterol [Dulera 200-5 MCG] 2 puff IH BIDRT 10/02/18 05:11 BASIC METABOLIC PANEL,BMP [CHEM] AM CBC WITH AUTO DIFF [HEME] AM - Plan Plan:: #COPD exacerbation -BIPAP throughout today and Q4hrs overnight. -start prednisone 50 mg daily -nebs dulera, spiriva -duonebs PRN and ATC -daily peak flow measurement -flutter valve -incentive spirometry #Community acquired pneumonia Hx of PCN allergy IV levaquin Trend CBC daily Follow up on bld cx, sputum cx #Smoking hx counselled patient on smoking cessation and he is willing to quit nicotine patch #DVT ppx SC lovenox #Code status FC
[2018-10-01] MEDS: predniSONE 20 MG Tab PO SCH (11:50)
[2018-10-01] MEDS: Enoxaparin 40 MG/0.4 ML Syringe SUBCUT SCH (11:53)
[2018-10-01] MEDS: Nicotine 21 MG/24 Hr Patch TRDERM SCH (11:53)
[2018-10-01] MEDS: Sodium Chloride 0.9% 1,000 ML IV SCH ×2 (11:55→22:47)
[2018-10-01] MEDS: Levofloxacin/Dextrose 5%-Water 500 MG in Premix Bag 1 BAG IV SCH (14:22)
[2018-10-01 18:39] LABS: O2 DELIVERY DEVICE BIPAP
[2018-10-01 18:40] LABS: BASE EXCESS ARTERIAL 4 mmol/L ((-2)-(+3)); O2 SATURATION ARTERIAL 92 % (95-100); PCO2 ARTERIAL 64 mmHg (35-45); PO2 ARTERIAL 62 mmHg (70-100)
[2018-10-02] MEDS: Albuterol/Ipratropium 3.0-0.5 MG/3 ML Neb Soln NEB SCH ×4 (00:30→23:32)
[2018-10-02] MEDS: Acetaminophen 325 MG Tab PO PRN (01:15)
[2018-10-02 06:41] LABS: ANION GAP 13.3; CHLORIDE,CL 97 mmol/L (101-111); SODIUM,NA 138 mmol/L (135-145)
[2018-10-02 07:29] LABS: BASE EXCESS ARTERIAL 6 mmol/L ((-2)-(+3)); BICARBONATE,ARTERIAL 34.3 mmol/L (22-26); O2 DELIVERY DEVICE BIPAP; O2 SATURATION ARTERIAL 97 % (95-100); PO2 ARTERIAL 84 mmHg (70-100)
[2018-10-02 07:30] LABS: PCO2 ARTERIAL 74 mmHg (35-45)
[2018-10-02 07:31] LABS: ALLEN TEST OK
[2018-10-02] MEDS: Formoterol/Mometasone 200-5 MCG 8.8 GM Inhaler IH SCH ×2 (08:40→17:47)
[2018-10-02] MEDS: predniSONE 20 MG Tab PO SCH (08:42)
[2018-10-02] MEDS: Nicotine 21 MG/24 Hr Patch TRDERM SCH (08:43)
[2018-10-02] MEDS: Enoxaparin 40 MG/0.4 ML Syringe SUBCUT SCH (08:47)
[2018-10-02] MEDS: Tiotropium Inhaler 18 MCG Inhalation Powder Cap Kit of 5 INH SCH (08:48)
[2018-10-02] MEDS: Sodium Chloride 0.9% 1,000 ML IV SCH ×2 (08:52→19:52)
--- NOTE | 2018-10-02 09:57 | PCM.PN ---
- General Info Date of Service: 10/02/18 Admission Dx/Problem (Free Text): Admission Diagnosis/Problem Admission Diagnosis/Problem Pneumonia Subjective Update: I saw and examined the patient at the bedside Overnight, he had intermitent BiPAP as ordered. Morning ABG shows significant hypercapnia Continuous BiPAP restarted. Patient feels better today. Cough and sputum is improved. Afebrile overnight. ROS: no chest pain, no lightheadedness, no urinary symptoms. - Review of Systems General: Denies: Fever HEENT: Reports: No Symptoms Pulmonary: Reports: Shortness of Breath, Cough, Sputum Cardiovascular: Reports: No Symptoms Gastrointestinal: Reports: No Symptoms Genitourinary: Reports: No Symptoms Musculoskeletal: Reports: No Symptoms Skin: Reports: No Symptoms - Patient Data Vitals - Most Recent: Last Vital Signs Temp 36.4 C 10/02/18 08:06 Pulse 64 10/02/18 08:06 Resp 22 H 10/02/18 08:06 BP 132/81 10/02/18 08:06 Pulse Ox 94 L 10/02/18 08:06 Weight - Most Recent: 126.008 kg I&O - Last 24 Hours: Intake & Output 10/01/18 10/02/18 10/02/18 22:59 06:59 14:59 Intake Total 1459 959 Output Total 200 650 Balance 1259 309 Lab Results Last 24 Hours: Laboratory Results - last 24 hr 10/01/18 10/02/18 10/02/18 Range/Units 18:35 06:15 06:15 WBC 15.6 H (5.0-10.0) 10^3/uL RBC 4.42 L (4.6-6.2) 10^6/uL Hgb 13.7 L (14.0-18.0) g/dL Hct 44.9 (40.0-54.0) % MCV 101.6 H (80-100) fL MCH 31.0 (27.0-34.0) pg MCHC 30.5 L (33.0-35.0) g/dL Plt Count 224 (150-450) 10^3/uL Neut % (Auto) 74.7 (42.2-75.2) % Lymph % (Auto) 13.8 L (20.5-50.1) % [facility] % (Auto) 11.3 H (2-8) % Eos % (Auto) 0.1 L (1.0-3.0) % Baso % (Auto) 0.1 (0.0-1.0) % Add Manual Diff ABG pH 7.32 L (7.35-7.45) ABG pCO2 64 H (35-45) mmHg ABG pO2 62 L (70-100) mmHg ABG HCO3 32.0 H (22-26) mmol/L ABG O2 Saturation 92 L (95-100) % ABG Base Excess 4 H ((-2)-(+3)) mmol/L Sharath Test Ok O2 Delivery Device Bipap Sodium 138 (135-145) mmol/L Potassium 4.3 (3.6-5.0) mmol/L Chloride 97 L (101-111) mmol/L Carbon Dioxide 32.0 H (21.0-31.0) mmol/L Anion Gap 13.3 BUN 15 (7-18) mg/dL Creatinine 0.6 (0.6-1.3) mg/dL Est Cr Clr Drug Dosing 148.16 mL/min Estimated GFR (MDRD) > 60 Glucose 104 (74-105) mg/dL Calcium 8.5 (8.4-10.2) mg/dl 10/02/ Range/Units 07:20 WBC (5.0-10.0) 10^3/uL RBC (4.6-6.2) 10^6/uL Hgb (14.0-18.0) g/dL Hct (40.0-54.0) % MCV (80-100) fL MCH (27.0-34.0) pg MCHC (33.0-35.0) g/dL Plt Count (150-450) 10^3/uL Neut % (Auto) (42.2-75.2) % Lymph % (Auto) (20.5-50.1) % [place] % (Auto) (2-8) % Eos % (Auto) (1.0-3.0) % Baso % (Auto) (0.0-1.0) % Add Manual Diff ABG pH 7.29 L (7.35-7.45) ABG pCO2 74 H* (35-45) mmHg ABG pO2 84 (70-100) mmHg ABG HCO3 34.3 H (22-26) mmol/L ABG O2 Saturation 97 (95-100) % ABG Base Excess 6 H ((-2)-(+3)) mmol/L Sharath Test Ok O2 Delivery Device Bipap Sodium (135-145) mmol/L Potassium (3.6-5.0) mmol/L Chloride (101-111) mmol/L Carbon Dioxide (21.0-31.0) mmol/L Anion Gap BUN (7-18) mg/dL Creatinine (0.6-1.3) mg/dL Est Cr Clr Drug Dosing mL/min Estimated GFR (MDRD) Glucose (74-105) mg/dL Calcium (8.4-10.2) mg/dl Jn Results Last 24 Hours: Microbiology 09/30/18 09:11 Aerobic Blood Culture - Preliminary Blood NO GROWTH AFTER 2 DAYS Anaerobic Blood Culture - Preliminary NO GROWTH AFTER 2 DAYS 09/30/18 09:02 Gram Stain - Final Sputum - Expectorated Sputum Culture - Preliminary Normal Jacqueline 09/30/18 10:07 Aerobic Blood Culture - Preliminary Blood NO GROWTH AFTER 1 DAY Anaerobic Blood Culture - Preliminary NO GROWTH AFTER 1 DAY Med Orders - Current: Current Medications Acetaminophen (Tylenol) 650 mg PO Q6H PRN PRN Reason: Fever Last Admin: 10/02/18 01:15 Dose: 650 mg Albuterol/Ipratropium (Duoneb 3.0-0.5 Mg/3 Ml) 3 ml NEB Q4HRRT PRN PRN Reason: Shortness of Breath Last Admin: 09/30/18 20:07 Dose: 3 ml Albuterol/Ipratropium (Duoneb 3.0-0.5 Mg/3 Ml) 3 ml NEB Q8HRRT [facility] Last Admin: 10/02/18 07:20 Dose: 3 ml Enoxaparin Sodium (Lovenox) 40 mg SUBCUT DAILY [facility] Last Admin: 10/02/18 08:47 Dose: 40 mg Sodium Chloride (Normal Saline) 1,000 mls @ 100 mls/hr IV ASDIRECTED [facility] Last Admin: 10/02/18 08:52 Dose: 100 mls/hr Levofloxacin/Dextrose 500 mg/ (Premix) 100 mls @ 100 mls/hr IV Q24H [facility] Last Infusion: 10/01/18 15:34 Dose: Infused Mometasone Furoate/Formoterol Fumar (Dulera 200-5 Mcg) 2 puff IH BIDRT [facility] Last Admin: 10/02/18 08:40 Dose: 2 puff Nicotine (Habitrol) 21 mg TRDERM DAILY [facility] Last Admin: 10/02/18 08:43 Dose: 21 mg Prednisone (Prednisone) 50 mg PO WITHBREAKFAST [facility] Last Admin: 10/02/18 08:42 Dose: 50 mg Sodium Chloride (Saline Flush) 10 ml FLUSH ASDIRECTED PRN PRN Reason: Keep Vein Open Tiotropium [place] (Spiriva Handihaler) 18 mcg INH DAILY [facility] Last Admin: 10/02/18 08:48 Dose: 18 mcg Discontinued Medications Albuterol/Ipratropium (Duoneb 3.0-0.5 Mg/3 Ml) 3 ml NEB ONETIME ONE Stop: 09/30/18 09:38 Last Admin: 09/30/18 09:43 Dose: 3 ml Vancomycin HCl 2 gm/ Sodium (Chloride) 500 mls @ 250 mls/hr IV ONETIME ONE Stop: 09/30/18 12:14 Last Admin: 09/30/18 10:42 Dose: 250 mls/hr Meropenem 1 gm/ Sodium (Chloride) 100 mls @ 200 mls/hr IV ONETIME ONE Stop: 09/30/18 10:54 Last Admin: 09/30/18 10:42 Dose: 200 mls/hr Meropenem/Sodium Chloride 1 gm (/ Premix) 50 mls @ 100 mls/hr IV Q8HR [facility] Vancomycin HCl 1.5 gm/ Sodium (Chloride) 500 mls @ 333.333 mls/hr IV Q12H [facility] Vancomycin HCl (Pharmacy To Dose - Vancomycin) 1 dose .XX ASDIRECTED [facility] - Exam General: Alert, Oriented HEENT: Pupils Equal Neck: Supple Lungs: Clear to Auscultation, Normal Respiratory Effort, Other (speaks in complete sentences, no use of accesory muscles, still hypoxic when off oxygen) Cardiovascular: Regular Rate, Regular Rhythm GI/Abdominal Exam: Normal Bowel Sounds, Soft, Non-Tender Extremities: Normal Inspection. No: Pedal Edema - Problem List Review Problem List Initiated/Reviewed/Updated: Yes - My Orders Last 24 Hours: My Active Orders 10/01/18 11:59 BIPAP Adult [RT BiPAP/CPAP] [RC] ASDIRECTED 10/01/18 12:00 predniSONE 50 mg PO WITHBREAKFAST 10/01/18 12:02 Telemetry Monitoring [Cardiac Monitoring] [RC] ,10/01/18 12:03 Overnight Pulse Oximetry [RC] Click to Edit Pulse Oximetry Continuous Monitoring [OM.PC] Routine 10/01/18 18:54 Communication Order [RC] DAILY - Plan Plan:: #COPD exacerbation -BIPAP throughout today and Q4hrs overnight. -continue prednisone 50 mg daily -nebs dulera, spiriva -duonebs PRN and ATC -daily peak flow measurement -flutter valve -incentive spirometry #Community acquired pneumonia Hx of PCN allergy IV levaquin Follow up on bld cx, sputum cx #Smoking hx counselled patient on smoking cessation and he is willing to quit nicotine patch #DVT ppx SC lovenox #Code status FC
[2018-10-02] MEDS: Levofloxacin/Dextrose 5%-Water 500 MG in Premix Bag 1 BAG IV SCH (14:05)
[2018-10-02] MEDS: guaiFENesin 600 MG Tab.ER PO PRN (15:31)
[2018-10-02 20:40] LABS: BASE EXCESS ARTERIAL 5 mmol/L ((-2)-(+3)); O2 DELIVERY DEVICE BIPAP; O2 SATURATION ARTERIAL 97 % (95-100); PO2 ARTERIAL 84 mmHg (70-100)
[2018-10-02 20:42] LABS: ALLEN TEST PERFORMED; PCO2 ARTERIAL 68 mmHg (35-45)
[2018-10-03 07:30] LABS: BASE EXCESS ARTERIAL 6 mmol/L ((-2)-(+3)); BICARBONATE,ARTERIAL 30.1 mmol/L (22-26); O2 DELIVERY DEVICE BIPAP; O2 SATURATION ARTERIAL 98 % (95-100); PCO2 ARTERIAL 45 mmHg (35-45); PO2 ARTERIAL 97 mmHg (70-100)
[2018-10-03 07:32] LABS: ALLEN TEST PERFORMED
[2018-10-03] MEDS: Albuterol/Ipratropium 3.0-0.5 MG/3 ML Neb Soln NEB SCH ×3 (07:52→23:02)
[2018-10-03] MEDS: Tiotropium Inhaler 18 MCG Inhalation Powder Cap Kit of 5 INH SCH (08:46)
[2018-10-03] MEDS: Formoterol/Mometasone 200-5 MCG 8.8 GM Inhaler IH SCH ×2 (08:46→17:42)
[2018-10-03] MEDS: predniSONE 20 MG Tab PO SCH (08:48)
[2018-10-03] MEDS: Nicotine 21 MG/24 Hr Patch TRDERM SCH (08:49)
[2018-10-03] MEDS: Enoxaparin 40 MG/0.4 ML Syringe SUBCUT SCH (08:49)
--- NOTE | 2018-10-03 10:47 | PCM.PN ---
- General Info Date of Service: 10/03/18 Admission Dx/Problem (Free Text): Admission Diagnosis/Problem Admission Diagnosis/Problem /COPD exacebation/Pneumonia Subjective Update: I saw and examined the patient at the bedside. Was placed on BiPAP overnight for severe hypercapnia. CO2 on ABG this morning significantly improved. Patient now on NC at 4 L and saturating well. Denies chest pain, SOB. Says he can now breath Functional Status: Reports: Pain Controlled - Review of Systems General: Reports: No Symptoms HEENT: Reports: No Symptoms Pulmonary: Reports: No Symptoms, Cough, Sputum Cardiovascular: Reports: No Symptoms Gastrointestinal: Reports: No Symptoms Genitourinary: Reports: No Symptoms Musculoskeletal: Reports: No Symptoms Skin: Reports: No Symptoms Neurological: Reports: No Symptoms Psychiatric: Reports: No Symptoms - Patient Data Vitals - Most Recent: Last Vital Signs Temp 97.6 F 10/03/18 07:37 Pulse 62 10/03/18 07:37 Resp 20 10/03/18 07:37 BP 149/91 H 10/03/18 07:37 Pulse Ox 98 10/03/18 07:37 Weight - Most Recent: 284 lb 4 oz I&O - Last 24 Hours: Intake & Output 10/02/18 10/03/18 10/03/18 22:59 06:59 14:59 Intake Total 1906 1150 Output Total 500 400 Balance 1406 750 Lab Results Last 24 Hours: Laboratory Results - last 24 hr 10/02/18 10/03/18 Range/Units 20:35 07:25 ABG pH 7.31 L 7.44 (7.35-7.45) ABG pCO2 68 H* 45 (35-45) mmHg ABG pO2 84 97 (70-100) mmHg ABG HCO3 33.0 H 30.1 H (22-26) mmol/L ABG O2 Saturation 97 98 (95-100) % ABG Base Excess 5 H 6 H ((-2)-(+3)) mmol/L Sharath Test Performed Performed O2 Delivery Device Bipap Bipap Jn Results Last 24 Hours: Microbiology 09/30/18 10:07 Aerobic Blood Culture - Preliminary Blood NO GROWTH AFTER 3 DAYS Anaerobic Blood Culture - Preliminary NO GROWTH AFTER 3 DAYS 09/30/18 09:11 Aerobic Blood Culture - Preliminary Blood NO GROWTH AFTER 3 DAYS Anaerobic Blood Culture - Preliminary NO GROWTH AFTER 3 DAYS 09/30/18 09:02 Gram Stain - Final Sputum - Expectorated Sputum Culture - Final Normal Jacqueline Med Orders - Current: Current Medications Acetaminophen (Tylenol) 650 mg PO Q6H PRN PRN Reason: Fever Last Admin: 10/02/18 01:15 Dose: 650 mg Albuterol/Ipratropium (Duoneb 3.0-0.5 Mg/3 Ml) 3 ml NEB Q4HRRT PRN PRN Reason: Shortness of Breath Last Admin: 09/30/18 20:07 Dose: 3 ml Albuterol/Ipratropium (Duoneb 3.0-0.5 Mg/3 Ml) 3 ml NEB Q8HRRT [facility] Last Admin: 10/03/18 07:52 Dose: 3 ml Enoxaparin Sodium (Lovenox) 40 mg SUBCUT DAILY [facility] Last Admin: 10/03/18 08:49 Dose: 40 mg Guaifenesin (Mucinex) 600 mg PO BID PRN PRN Reason: Cough Last Admin: 10/02/18 15:31 Dose: 600 mg Levofloxacin/Dextrose 500 mg/ (Premix) 100 mls @ 100 mls/hr IV Q24H [facility] Last Infusion: 10/02/18 15:10 Dose: Infused Mometasone Furoate/Formoterol Fumar (Dulera 200-5 Mcg) 2 puff IH BIDRT [facility] Last Admin: 10/03/18 08:46 Dose: 2 puff Nicotine (Habitrol) 21 mg TRDERM DAILY [facility] Last Admin: 10/03/18 08:49 Dose: 21 mg Prednisone (Prednisone) 50 mg PO WITHBREAKFAST [facility] Last Admin: 10/03/18 08:48 Dose: 50 mg Sodium Chloride (Saline Flush) 10 ml FLUSH ASDIRECTED PRN PRN Reason: Keep Vein Open Tiotropium [place] (Spiriva Handihaler) 18 mcg INH DAILY [facility] Last Admin: 10/03/18 08:46 Dose: 18 mcg Discontinued Medications Albuterol/Ipratropium (Duoneb 3.0-0.5 Mg/3 Ml) 3 ml NEB ONETIME ONE Stop: 09/30/18 09:38 Last Admin: 09/30/18 09:43 Dose: 3 ml Vancomycin HCl 2 gm/ Sodium (Chloride) 500 mls @ 250 mls/hr IV ONETIME ONE Stop: 09/30/18 12:14 Last Admin: 09/30/18 10:42 Dose: 250 mls/hr Meropenem 1 gm/ Sodium (Chloride) 100 mls @ 200 mls/hr IV ONETIME ONE Stop: 09/30/18 10:54 Last Admin: 09/30/18 10:42 Dose: 200 mls/hr Meropenem/Sodium Chloride 1 gm (/ Premix) 50 mls @ 100 mls/hr IV Q8HR [facility] Sodium Chloride (Normal Saline) 1,000 mls @ 100 mls/hr IV ASDIRECTED [facility] Last Admin: 10/02/18 19:52 Dose: 100 mls/hr Vancomycin HCl 1.5 gm/ Sodium (Chloride) 500 mls @ 333.333 mls/hr IV Q12H [facility] Vancomycin HCl (Pharmacy To Dose - Vancomycin) 1 dose .XX ASDIRECTED [facility] - Exam Quality Assessment: Supplemental Oxygen General: Alert, Oriented HEENT: Pupils Equal, Pupils Reactive, EOMI, Mucous Membr. Moist/[place] Neck: Supple Lungs: Clear to Auscultation, Normal Respiratory Effort Cardiovascular: Regular Rate, Regular Rhythm GI/Abdominal Exam: Normal Bowel Sounds, Soft, Non-Tender, No Organomegaly, No Distention, No Abnormal Bruit, No Mass, Pelvis Stable (Male) Exam: No Hernia, Normal Inspection, Normal Prostate, Circumcised Back Exam: Normal Inspection, Full Range of Motion Extremities: Normal Inspection, Normal Range of Motion, Non-Tender, No Pedal Edema, Normal Capillary Refill Skin: Warm, Dry, Intact Wound/Incisions: Healing Well Neurological: No New Focal Deficit Psy/Mental Status: Alert, Normal Affect, Normal Mood - Problem List & Annotations (1) COPD exacerbation SNOMED Code(s): 964321566 Code(s): J44.1 - CHRONIC OBSTRUCTIVE PULMONARY DISEASE W (ACUTE) EXACERBATION Status: Acute Current Visit: Yes (2) Acute respiratory failure with hypoxia and hypercapnia SNOMED Code(s): 599803428 Code(s): J96.01 - ACUTE RESPIRATORY FAILURE WITH HYPOXIA; J96.02 - ACUTE RESPIRATORY FAILURE WITH HYPERCAPNIA Status: Acute Current Visit: Yes - Problem List Review Problem List Initiated/Reviewed/Updated: Yes - Plan Plan:: Acute hypoxic/hypercapnic respiratory failure CO2 improved on BIPAP Continue supplemental oxygen and wean off as tolerated BIPAP qhs as needed #COPD exacerbation -continue prednisone 50 mg daily -nebs Dulera, Spiriva -duonebs PRN and ATC -daily peak flow measurement -flutter valve -incentive spirometry #Community acquired pneumonia Hx of PCN allergy Continue IV levaquin Follow up on bld cx, sputum cx #Smoking hx counselled patient on smoking cessation and he is willing to quit nicotine patch #Physical deconditioning PT/OT #DVT ppx SC lovenox #Code status FC
[2018-10-03] MEDS: Levofloxacin/Dextrose 5%-Water 500 MG in Premix Bag 1 BAG IV SCH (14:29)
[2018-10-03] MEDS: Sodium Chloride 0.9% 10 ML Syringe FLUSH PRN ×2 (14:29→23:09)
[2018-10-03] MEDS: Acetaminophen 325 MG Tab PO PRN (19:43)
[2018-10-04] MEDS: guaiFENesin 600 MG Tab.ER PO PRN (02:12)
[2018-10-04] MEDS: Albuterol/Ipratropium 3.0-0.5 MG/3 ML Neb Soln NEB SCH ×3 (07:34→23:18)
[2018-10-04] MEDS: predniSONE 20 MG Tab PO SCH (08:48)
[2018-10-04] MEDS: Acetaminophen 325 MG Tab PO PRN (08:49)
[2018-10-04] MEDS: Nicotine 21 MG/24 Hr Patch TRDERM SCH (08:50)
[2018-10-04] MEDS: Enoxaparin 40 MG/0.4 ML Syringe SUBCUT SCH (08:51)
[2018-10-04] MEDS: Formoterol/Mometasone 200-5 MCG 8.8 GM Inhaler IH SCH ×2 (08:55→17:08)
[2018-10-04] MEDS: Tiotropium Inhaler 18 MCG Inhalation Powder Cap Kit of 5 INH SCH (08:56)
--- NOTE | 2018-10-04 10:51 | PCM.PN ---
- General Info Date of Service: 10/04/18 Admission Dx/Problem (Free Text): Admission Diagnosis/Problem Admission Diagnosis/Problem /COPD exacebation/Pneumonia Subjective Update: Patient admitted for COPD exacerbation and pneumonia He was seen and examined today. No acute overnight event. Patient now on NC at 2 L and saturating well. Denies chest pain, SOB. Functional Status: Reports: Pain Controlled - Review of Systems General: Reports: No Symptoms HEENT: Reports: No Symptoms Pulmonary: Reports: No Symptoms Cardiovascular: Reports: No Symptoms Gastrointestinal: Reports: No Symptoms Genitourinary: Reports: No Symptoms Musculoskeletal: Reports: No Symptoms Skin: Reports: No Symptoms Neurological: Reports: No Symptoms Psychiatric: Reports: No Symptoms - Patient Data Vitals - Most Recent: Last Vital Signs Temp 97.7 F 10/04/18 07:56 Pulse 68 10/04/18 07:56 Resp 20 10/04/18 07:56 BP 129/86 10/04/18 07:56 Pulse Ox 93 L 10/04/18 07:56 Weight - Most Recent: 286 lb I&O - Last 24 Hours: Intake & Output 10/03/18 10/04/18 10/04/18 22:59 06:59 14:59 Intake Total 696 250 200 Balance 696 250 200 Lab Results Last 24 Hours: Laboratory Results - last 24 hr 10/04/18 Range/Units 10:33 WBC 13.9 H (5.0-10.0) 10^3/uL RBC 4.51 L (4.6-6.2) 10^6/uL Hgb 14.1 (14.0-18.0) g/dL Hct 43.6 (40.0-54.0) % MCV 96.7 D (80-100) fL MCH 31.3 (27.0-34.0) pg MCHC 32.3 L (33.0-35.0) g/dL Plt Count 260 (150-450) 10^3/uL Neut % (Auto) 65.2 (42.2-75.2) % Lymph % (Auto) 20.6 (20.5-50.1) % [place] % (Auto) 13.9 H (2-8) % Eos % (Auto) 0.2 L (1.0-3.0) % Baso % (Auto) 0.1 (0.0-1.0) % Jn Results Last 24 Hours: Microbiology 09/30/18 10:07 Aerobic Blood Culture - Preliminary Blood NO GROWTH AFTER 4 DAYS Anaerobic Blood Culture - Preliminary NO GROWTH AFTER 4 DAYS 09/30/18 09:11 Aerobic Blood Culture - Preliminary Blood NO GROWTH AFTER 4 DAYS Anaerobic Blood Culture - Preliminary NO GROWTH AFTER 4 DAYS 09/30/18 09:02 Gram Stain - Final Sputum - Expectorated Sputum Culture - Final Normal Jacqueline Med Orders - Current: Current Medications Acetaminophen (Tylenol) 650 mg PO Q6H PRN PRN Reason: Fever Last Admin: 10/04/18 08:49 Dose: 650 mg Albuterol/Ipratropium (Duoneb 3.0-0.5 Mg/3 Ml) 3 ml NEB Q4HRRT PRN PRN Reason: Shortness of Breath Last Admin: 09/30/18 20:07 Dose: 3 ml Albuterol/Ipratropium (Duoneb 3.0-0.5 Mg/3 Ml) 3 ml NEB Q8HRRT [facility] Last Admin: 10/04/18 07:34 Dose: 3 ml Enoxaparin Sodium (Lovenox) 40 mg SUBCUT DAILY [facility] Last Admin: 10/04/18 08:51 Dose: 40 mg Guaifenesin (Mucinex) 600 mg PO BID PRN PRN Reason: Cough Last Admin: 10/04/18 02:12 Dose: 600 mg Levofloxacin/Dextrose 500 mg/ (Premix) 100 mls @ 100 mls/hr IV Q24H [facility] Last Admin: 10/03/18 14:29 Dose: 100 mls/hr Mometasone Furoate/Formoterol Fumar (Dulera 200-5 Mcg) 2 puff IH BIDRT [facility] Last Admin: 10/04/18 08:55 Dose: 2 puff Nicotine (Habitrol) 21 mg TRDERM DAILY [facility] Last Admin: 10/04/18 08:50 Dose: 21 mg Prednisone (Prednisone) 50 mg PO WITHBREAKFAST [facility] Last Admin: 10/04/18 08:48 Dose: 50 mg Sodium Chloride (Saline Flush) 10 ml FLUSH ASDIRECTED PRN PRN Reason: Keep Vein Open Last Admin: 10/03/18 23:09 Dose: 10 ml Tiotropium [place] (Spiriva Handihaler) 18 mcg INH DAILY [facility] Last Admin: 10/04/18 08:56 Dose: 18 mcg Discontinued Medications Albuterol/Ipratropium (Duoneb 3.0-0.5 Mg/3 Ml) 3 ml NEB ONETIME ONE Stop: 09/30/18 09:38 Last Admin: 09/30/18 09:43 Dose: 3 ml Vancomycin HCl 2 gm/ Sodium (Chloride) 500 mls @ 250 mls/hr IV ONETIME ONE Stop: 09/30/18 12:14 Last Admin: 09/30/18 10:42 Dose: 250 mls/hr Meropenem 1 gm/ Sodium (Chloride) 100 mls @ 200 mls/hr IV ONETIME ONE Stop: 09/30/18 10:54 Last Admin: 09/30/18 10:42 Dose: 200 mls/hr Meropenem/Sodium Chloride 1 gm (/ Premix) 50 mls @ 100 mls/hr IV Q8HR [facility] Sodium Chloride (Normal Saline) 1,000 mls @ 100 mls/hr IV ASDIRECTED [facility] Last Admin: 10/02/18 19:52 Dose: 100 mls/hr Vancomycin HCl 1.5 gm/ Sodium (Chloride) 500 mls @ 333.333 mls/hr IV Q12H [facility] Vancomycin HCl (Pharmacy To Dose - Vancomycin) 1 dose .XX ASDIRECTED [facility] - Exam Quality Assessment: Supplemental Oxygen, DVT Prophylaxis General: Alert, Oriented HEENT: Pupils Equal, Pupils Reactive, EOMI, Mucous Membr. Moist/[place] Neck: Supple Lungs: Clear to Auscultation, Normal Respiratory Effort Cardiovascular: Regular Rate, Regular Rhythm GI/Abdominal Exam: Normal Bowel Sounds, Soft, Non-Tender, No Organomegaly, No Distention, No Abnormal Bruit, No Mass, Pelvis Stable (Male) Exam: No Hernia, Normal Inspection, Normal Prostate, Circumcised Back Exam: Normal Inspection, Full Range of Motion Extremities: Normal Inspection, Normal Range of Motion, Non-Tender, No Pedal Edema, Normal Capillary Refill Skin: Warm, Dry, Intact Wound/Incisions: Healing Well Neurological: No New Focal Deficit Psy/Mental Status: Alert, Normal Affect, Normal Mood - Problem List & Annotations (1) COPD exacerbation SNOMED Code(s): 939816936 Code(s): J44.1 - CHRONIC OBSTRUCTIVE PULMONARY DISEASE W (ACUTE) EXACERBATION Status: Acute Current Visit: Yes (2) Acute respiratory failure with hypoxia and hypercapnia SNOMED Code(s): 022311920 Code(s): J96.01 - ACUTE RESPIRATORY FAILURE WITH HYPOXIA; J96.02 - ACUTE RESPIRATORY FAILURE WITH HYPERCAPNIA Status: Acute Current Visit: Yes - Problem List Review Problem List Initiated/Reviewed/Updated: Yes - My Orders Last 24 Hours: My Active Orders 10/03/18 10:53 OT Evaluation and Treatment [CONS] Routine PT Evaluation and Treatment [CONS] Routine 10/05/18 05:11 CBC WITH AUTO DIFF [HEME] AM 10/06/18 05:11 CBC WITH AUTO DIFF [HEME] AM - Plan Plan:: Acute hypoxic/hypercapnic respiratory failure Improving Continue supplemental oxygen and wean off as tolerated BIPAP qhs as needed #COPD exacerbation -continue prednisone 50 mg daily -nebs Dulera, Spiriva -duonebs PRN and ATC -daily peak flow measurement -flutter valve -incentive spirometry #Community acquired pneumonia Hx of PCN allergy Levaquin PO Follow up on bld cx, sputum cx #Smoking hx counselled patient on smoking cessation and he is willing to quit nicotine patch #Physical deconditioning PT/OT #DVT ppx SC lovenox #Code status FC
[2018-10-04] MEDS: Levofloxacin 500 MG Tab PO SCH (13:06)
[2018-10-04] MEDS ORDERED: Furosemide 40 MG Tab PO ONE (13:30)
[2018-10-04] MEDS: guaiFENesin 600 MG Tab.ER PO SCH (20:25)
[2018-10-05] MEDS: Albuterol/Ipratropium 3.0-0.5 MG/3 ML Neb Soln NEB SCH (07:27)
[2018-10-05] MEDS: Tiotropium Inhaler 18 MCG Inhalation Powder Cap Kit of 5 INH SCH (08:54)
[2018-10-05] MEDS: Formoterol/Mometasone 200-5 MCG 8.8 GM Inhaler IH SCH (08:54)
[2018-10-05] MEDS: predniSONE 20 MG Tab PO SCH (08:56)
[2018-10-05] MEDS: Levofloxacin 500 MG Tab PO SCH (08:57)
[2018-10-05] MEDS: Enoxaparin 40 MG/0.4 ML Syringe SUBCUT SCH (08:58)
[2018-10-05] MEDS: Nicotine 21 MG/24 Hr Patch TRDERM SCH (08:59)
[2018-10-05] MEDS: guaiFENesin 600 MG Tab.ER PO SCH (08:59)
--- NOTE | 2018-10-05 11:34 | PCM.DCSUM1 ---
Discharge Summary - Hospital Course Free Text/Narrative:: Patient admitted for COPD exacerbation and pneumonia with acute respiratory failure with hypercapnia and hypoxia. He required BIPAP on admit. He received IV abx. His respiratory function improved. He had walking desat test and he required oxygen with activity. He will be discharged home in stable condition on home oxygen. Patient will require formal Lung Function Test. He will follow up with PCP in 3 days. Patient was strongly advised on he need to quit smoking and he verbalized understanding. Diagnosis: Stroke: No - Discharge Data Discharge Date: 10/05/18 Discharge Disposition: Home, Self-Care 01 Condition: Good - Discharge Diagnosis/Problem(s) (1) COPD exacerbation SNOMED Code(s): 388019038 ICD Code: J44.1 - CHRONIC OBSTRUCTIVE PULMONARY DISEASE W (ACUTE) EXACERBATION Status: Acute Current Visit: Yes (2) Acute respiratory failure with hypoxia and hypercapnia SNOMED Code(s): 727310539 ICD Code: J96.01 - ACUTE RESPIRATORY FAILURE WITH HYPOXIA; J96.02 - ACUTE RESPIRATORY FAILURE WITH HYPERCAPNIA Status: Acute Current Visit: Yes - Patient Summary/Data Consults: Consultations 10/03/18 10:53 OT Evaluation and Treatment [CONS] Routine PT Evaluation and Treatment [CONS] Routine - Patient Instructions Diet: Heart Healthy Diet Activity: As Tolerated Showering/Bathing: May Shower Notify Provider of: Fever, Increased Pain, Swelling and Redness, Nausea and/or Vomiting - Discharge Plan *PRESCRIPTION DRUG MONITORING PROGRAM REVIEWED*: Not Applicable *COPY OF PRESCRIPTION DRUG MONITORING REPORT IN PATIENT RUBIN: Not Applicable Prescriptions/Med Rec: Albuterol [Proventil HFA] 1 puff INH QID PRN #1 inhaler PRN Reason: Shortness Of Breath guaiFENesin [Mucinex] 600 mg PO BID #10 tab.er levoFLOXacin [Levaquin] 500 mg PO DAILY #7 tablet Mometasone/Formoterol [Dulera 200-5 MCG] 2 puff IH BIDRT #1 inhaler Nicotine [Habitrol] 21 mg TRDERM DAILY #14 patch predniSONE 40 mg PO WITHBREAKFAST #10 tablet Tiotropium [Spiriva HandiHaler] 18 mcg INH DAILY #1 cap Home Medications: Home Meds Albuterol [Proventil HFA] 1 puff INH QID PRN #1 inhaler 10/05/18 [Rx] Mometasone/Formoterol [Dulera 200-5 MCG] 2 puff IH BIDRT #1 inhaler 10/05/18 [Rx ] Nicotine [Habitrol] 21 mg TRDERM DAILY #14 patch 10/05/18 [Rx] Tiotropium [Spiriva HandiHaler] 18 mcg INH DAILY #1 cap 10/05/18 [Rx] guaiFENesin [Mucinex] 600 mg PO BID #10 tab.er 10/05/18 [Rx] levoFLOXacin [Levaquin] 500 mg PO DAILY #7 tablet 10/05/18 [Rx] predniSONE 40 mg PO WITHBREAKFAST #10 tablet 10/05/18 [Rx] Oxygen Therapy Mode: Nasal Cannula Patient Handouts: Chronic Obstructive Pulmonary Disease Exacerbation, Easy-to- Read, Albuterol inhalation aerosol, Home Oxygen Use, Adult, Guaifenesin oral solution and syrup, Tiotropium inhalation powder, Formoterol; Mometasone metered dose inhaler, Levofloxacin tablets, Nicotine skin patches, Prednisone tablets, Community-Acquired Pneumonia, Adult, [id number] - Discharge Summary/Plan Comment DC Time >30 min.: Yes - General Info Date of Service: 10/05/18 Admission Dx/Problem (Free Text: Admission Diagnosis/Problem Admission Diagnosis/Problem /COPD exacebation/Pneumonia Subjective Update: No acute overnight event. He is on RA at rest. He denies SOB, chest pain Functional Status: Reports: Pain Controlled - Review of Systems General: Reports: No Symptoms HEENT: Reports: No Symptoms Pulmonary: Reports: No Symptoms Cardiovascular: Reports: No Symptoms Gastrointestinal: Reports: No Symptoms Genitourinary: Reports: No Symptoms Musculoskeletal: Reports: No Symptoms Skin: Reports: No Symptoms Neurological: Reports: No Symptoms Psychiatric: Reports: No Symptoms - Patient Data Vitals - Most Recent: Last Vital Signs Temp 97.7 F 10/05/18 07:52 Pulse 66 10/05/18 07:52 Resp 20 10/05/18 07:52 BP 136/82 10/05/18 07:52 Pulse Ox 95 10/05/18 07:52 Weight - Most Recent: 276 lb 9.6 oz I&O - Last 24 hours: Intake & Output 10/04/18 10/05/18 10/05/18 22:59 06:59 14:59 Intake Total 200 400 Output Total 125 Balance 75 400 Lab Results - Last 24 hrs: Laboratory Results - last 24 hr 10/05/18 Range/Units 06:09 WBC 13.1 H (5.0-10.0) 10^3/uL RBC 4.65 (4.6-6.2) 10^6/uL Hgb 14.2 (14.0-18.0) g/dL Hct 44.5 (40.0-54.0) % MCV 95.7 (80-100) fL MCH 30.5 (27.0-34.0) pg MCHC 31.9 L (33.0-35.0) g/dL Plt Count 292 (150-450) 10^3/uL Neut % (Auto) 58.8 (42.2-75.2) % Lymph % (Auto) 27.7 (20.5-50.1) % [place] % (Auto) 13.1 H (2-8) % Eos % (Auto) 0.2 L (1.0-3.0) % Baso % (Auto) 0.2 (0.0-1.0) % Add Manual Diff MELVINA Results - Last 24 hrs: Microbiology 09/30/18 10:07 Aerobic Blood Culture - Final Blood NO GROWTH AFTER 5 DAYS Anaerobic Blood Culture - Final NO GROWTH AFTER 5 DAYS 09/30/18 09:11 Aerobic Blood Culture - Final Blood NO GROWTH AFTER 5 DAYS Anaerobic Blood Culture - Final NO GROWTH AFTER 5 DAYS Med Orders - Current: Current Medications Acetaminophen (Tylenol) 650 mg PO Q6H PRN PRN Reason: Fever Last Admin: 10/04/18 08:49 Dose: 650 mg Albuterol/Ipratropium (Duoneb 3.0-0.5 Mg/3 Ml) 3 ml NEB Q4HRRT PRN PRN Reason: Shortness of Breath Last Admin: 09/30/18 20:07 Dose: 3 ml Albuterol/Ipratropium (Duoneb 3.0-0.5 Mg/3 Ml) 3 ml NEB Q8HRRT [facility] Last Admin: 10/05/18 07:27 Dose: 3 ml Enoxaparin Sodium (Lovenox) 40 mg SUBCUT DAILY [facility] Last Admin: 10/05/18 08:58 Dose: 40 mg Guaifenesin (Mucinex) 600 mg PO BID [facility] Last Admin: 10/05/18 08:59 Dose: 600 mg Levofloxacin (Levaquin) 500 mg PO DAILY [facility] Last Admin: 10/05/18 08:57 Dose: 500 mg Mometasone Furoate/Formoterol Fumar (Dulera 200-5 Mcg) 2 puff IH BIDRT [facility] Last Admin: 10/05/18 08:54 Dose: 2 puff Nicotine (Habitrol) 21 mg TRDERM DAILY [facility] Last Admin: 10/05/18 08:59 Dose: Not Given Prednisone (Prednisone) 50 mg PO WITHBREAKFAST [facility] Last Admin: 10/05/18 08:56 Dose: 50 mg Sodium Chloride (Saline Flush) 10 ml FLUSH ASDIRECTED PRN PRN Reason: Keep Vein Open Last Admin: 10/03/18 23:09 Dose: 10 ml Tiotropium [place] (Spiriva Handihaler) 18 mcg INH DAILY [facility] Last Admin: 10/05/18 08:54 Dose: 18 mcg Discontinued Medications Albuterol/Ipratropium (Duoneb 3.0-0.5 Mg/3 Ml) 3 ml NEB ONETIME ONE Stop: 09/30/18 09:38 Last Admin: 09/30/18 09:43 Dose: 3 ml Furosemide (Lasix) 40 mg PO ONETIME ONE Stop: 10/04/18 13:31 Last Admin: 10/04/18 13:54 Dose: 40 mg Guaifenesin (Mucinex) 600 mg PO BID PRN PRN Reason: Cough Last Admin: 10/04/18 02:12 Dose: 600 mg Vancomycin HCl 2 gm/ Sodium (Chloride) 500 mls @ 250 mls/hr IV ONETIME ONE Stop: 09/30/18 12:14 Last Admin: 09/30/18 10:42 Dose: 250 mls/hr Meropenem 1 gm/ Sodium (Chloride) 100 mls @ 200 mls/hr IV ONETIME ONE Stop: 09/30/18 10:54 Last Admin: 09/30/18 10:42 Dose: 200 mls/hr Meropenem/Sodium Chloride 1 gm (/ Premix) 50 mls @ 100 mls/hr IV Q8HR [facility] Sodium Chloride (Normal Saline) 1,000 mls @ 100 mls/hr IV ASDIRECTED [facility] Last Admin: 10/02/18 19:52 Dose: 100 mls/hr Vancomycin HCl 1.5 gm/ Sodium (Chloride) 500 mls @ 333.333 mls/hr IV Q12H [facility] Levofloxacin/Dextrose 500 mg/ (Premix) 100 mls @ 100 mls/hr IV Q24H [facility] Last Admin: 10/03/18 14:29 Dose: 100 mls/hr Vancomycin HCl (Pharmacy To Dose - Vancomycin) 1 dose .XX ASDIRECTED [facility] - Exam General: Reports: Alert, Oriented HEENT: Reports: Pupils Equal, Pupils Reactive, EOMI, Mucous Membr. Moist/[place] Neck: Reports: Supple Lungs: Reports: Clear to Auscultation, Normal Respiratory Effort Cardiovascular: Reports: Regular Rate, Regular Rhythm GI/Abdominal Exam: Normal Bowel Sounds, Soft, Non-Tender, No Organomegaly, No Distention, No Abnormal Bruit, No Mass, Pelvis Stable (Male) Exam: No Hernia, Normal Inspection, Normal Prostate, Circumcised Rectal (Males) Exam: Normal Exam, Normal Rectal Tone, Prostate Normal Back Exam: Reports: Normal Inspection, Full Range of Motion Extremities: Normal Inspection, Normal Range of Motion, Non-Tender, No Pedal Edema, Normal Capillary Refill Skin: Reports: Warm, Dry, Intact Wound/Incisions: Reports: Healing Well Neurological: Reports: No New Focal Deficit Psy/Mental Status: Reports: Alert, Normal Affect, Normal Mood
== END 2018-10-05 13:30 | disposition home or self-care (01) | DRG 139 ==
LOC: DL.ED 08:46 → UNDOADMIN 11:17 → DL.MS 11:17
PROVIDERS: ADMIT Hospitalist; ATTEND Student in an Organized Health Care Education/Training Program
PROC: 5A09457 Assistance with Respiratory Ventilation, 24-96 Consecutive Hours, Continuous Positive Airway Pressure (ICD-10-PCS; principal; 2018-09-30)
DX: J18.9 Pneumonia, unspecified organism (principal); J44.0 Chronic obstructive pulmonary disease with (acute) lower respiratory infection; J96.02 Acute respiratory failure with hypercapnia; J96.01 Acute respiratory failure with hypoxia; J44.1 Chronic obstructive pulmonary disease with (acute) exacerbation; F17.210 Nicotine dependence, cigarettes, uncomplicated; E66.9 Obesity, unspecified; Z88.0 Allergy status to penicillin; Z79.899 Other long term (current) drug therapy; Z68.38 Body mass index [BMI] 38.0-38.9, adult
CPT/HCPCS: 36415; 36600; 71046; 80048; 80053; 82803; 83605; 84484; 85025; 87040; 87070; 87205; 87804; 93005; 94618; 94640; 94660; 96374; 96375; 97116-GP; 97162-GP; 97165-GO; 99285-25; A9270-GY; J1650; J1956; J2185; J3370; J7030; J7040; J7050; J7620-GY